=== PATIENT | female | born 1995 | race American Indian/Alaskan Native ===

== ENCOUNTER 2016-11-12 14:15 | Emergency (ER) | payer SELFPAY ==
[2016-11-12 15:21] VITALS: BP 143/83
--- NOTE | 2016-11-12 15:22 | Emergency Department Report ---
Chief Complaint: Vaginal Bleeding Stated Complaint: VAG BLEEDING FOR 2 MNTHS/CONTINOUS Time Seen by Provider: 11/12/16 15:20 - HPI History of Present Illness: vag bleed new bcp sees ob in am but did not want to wait hx pcos denies preg or std concern - Exam Vital Signs: Vital Signs 11/12/16 15:17 Temperature 98.6 F Pulse Rate 63 Respiratory 17 Rate Blood Pressure 143/83 O2 Sat by Pulse 98 Oximetry MSE screening note: Focused history and physical exam performed. Due to findings the following was ordered: ED Disposition for MSE Condition: Stable
[2016-11-12 15:42] LABS: Basophils % (Auto) 0.6 % (0.0-1.8); Eosinophils % (Auto) 2.2 % (0.0-4.3); Hematocrit 31.1 % (30.3-42.9); Hemoglobin 9.7 gm/dl (10.1-14.3); Mean Corpuscular HGB Conc 31 % (30-34); Mean Corpuscular Volume 76 fl (79-97); Platelet Count 399 K/mm3 (140-440); Red Cell Distribution Width 14.6 % (13.2-15.2); White Blood Count 8.3 K/mm3 (4.5-11.0)
[2016-11-12 15:44] LABS: Mean Corpuscular Hemoglobin 24 pg (28-32)
[2016-11-12 16:03] LABS: Anion Gap 17 mmol/L; BUN/Creatinine Ratio 12.22; Blood Urea Nitrogen 11 mg/dL (7-17); Calcium 9.1 mg/dL (8.4-10.2); Carbon Dioxide 23 mmol/L (22-30); Chloride 99.9 mmol/L (98-107); Glucose 104 mg/dL (65-100); Potassium 4.6 mmol/L (3.6-5.0); Sodium 135 mmol/L (137-145)
== END 2016-11-12 20:25 | disposition left against medical advice (07) ==
LOC: ED 14:15
DX: N93.8 Other specified abnormal uterine and vaginal bleeding (principal); Z53.21 Procedure and treatment not carried out due to patient leaving prior to being seen by health care provider
CPT/HCPCS: 36415; 80048; 85025

== ENCOUNTER 2020-03-01 06:03 | Day surgery (SDC) | payer OTHER ==
[2020-02-26 10:53] LABS: Hematocrit 25.6 % (30.3-42.9); Hemoglobin 8.5 gm/dl (10.1-14.3); Mean Corpuscular HGB Conc 33 % (30-34); Platelet Count 385 K/mm3 (140-440); Red Blood Count 3.83 M/mm3 (3.65-5.03)
[2020-02-26 11:13] LABS: Mean Corpuscular Volume 67 fl (79-97); Red Cell Distribution Width 24.4 % (13.2-15.2)
--- NOTE | 2020-02-29 18:00 | History and Physical Report ---
History of Present Illness Date of examination: 02/25/20 Chief complaint: Menorrhagia, endometrial mass, anemia History of present illness: Past History : 2 Term Births: 1 Premature Births: 1 Living Children: 1 Para: 2 Mult. Births: 0 Prev : 0 Aborta: 0 Elect. Ab: 0 Spont. Ab: 0 Ectopics: 0 # 1 Delivery date: 01/24/2012 Weeks Gestation: 20 Delivery type: vaginal Sex: female weight: 6-3 Comments: labor, breech presentation, / , incompetent cervix # 2 Delivery date: 06/07/2014 Weeks Gestation: 40 Delivery type: Vaginal Anesthesia type: none Delivery location: [facility] Infant Sex: female weight: 8.25 Comments: hx PTD; s/p cerclage; meconium PIZZA CHEF History Uterine Surgery (not C/S): negative Operations: cerclage Anesthesia Complications: negative Abnormal PAP: negative Uterine Anomaly: negative HECTOR Exposure: negative Infertility: negative Infection History HIV Risk Eval: no Personal hx. of genital herpes: no Partner hx. of genital herpes: no Hx of STD: gonorrhea Other: Chlamydia Trichomonas Active Medications (reviewed today): FERROUS SULFATE 325 (65 FE) MG ORAL TABLET (FERROUS SULFATE) 1 po qd SPRINTEC 28 0.25-35 MG-MCG ORAL TABLET (NORGESTIMATE-ETH ESTRADIOL) 1 po qd continuous therapy as directed Current Allergies (reviewed today): No known allergies Past Medical History: 20wk cervical incompetence Blood Transfusion x 3 for menorrhagia - last transfusion 12/2019 PCOS dx'd 2013 Anemia Past Surgical History: Reviewed history from 11/13/2016 and no changes required: cerclage Family History Summary: Reviewed history Last on 01/28/2020 and no changes required:02/29/2020 Other Family Member - Has No Family History of Uterine Cancer - Entered On: 11/09/2018 Other Family Member - Has No Family History of Small Bowel Cancer - Entered On: 11/09/2018 Other Family Member - Has No Family History of Stomach Cancer - Entered On: 11/09 Other Family Member - Has No Family History of Pancreatic Cancer - Entered On: 11/09/2018 Other Family Member - Has No Family History of Ovarvian Cancer - Entered On: 11/09/2018 Other Family Member - Has No Family History of Kidney/Urinary Tract Cancer - Entered On: 11/09/2018 Other Family Member - Has No Family History of Spontaneous DVT-PE - Entered On: 11/09/2018 Other Family Member - Has No Family History of Colon Cancer - Entered On: 11/09/2018 Other Family Member - Has No Family History of Brain Cancer - Entered On: 11/09/2018 Other Family Member - Has No Family History of Breast Cancer - Entered On: 11/09/2018 Other Family Member - Has No Family History of Biliary Tract Cancer - Entered On: 11/09/2018 General Comments - FH: negative Social History: Reviewed history from 09/27/2017 and no changes required: no e/t/d single Smoking History: Patient is a former smoker. Risk Factors: Smoked Tobacco Use: Former smoker Years Since Last Quit: 2 Smokeless Tobacco Use: Never Passive smoke exposure: no Drug use: no Alcohol use: no Exercise: yes Seatbelt use: 100 % PAP Smear History: Date of Last PAP Smear: 01/28/2020 Previous Tobacco Use: Signed On 01/28/2020 Smoked Tobacco Use: Former smoker Cigarettes: Yes Year quit: 2018 Years Since Last Quit: 2 years, 7 months, 30 days Smokeless Tobacco Use: Never Passive smoke exposure: no Drug use: no HIV high-risk behavior: no Caffeine use: 0 drinks per day Previous Alcohol Use: Signed On 01/28/2020 Alcohol use: no Exercise: yes Times per week: 3 Type of Exercise: occ Seatbelt use: 100 % Dietary Counseling: pn yes PAP Smear History: Date of Last PAP Smear: 01/28/2020 Physical Exam Appearance: well developed, well nourished, no acute distress Other Exams Lungs: no rales, rhonchi, or wheezes Heart: S1, S2, no murmur, rub, or gallop Genitourinary Exam Uterus: deferred for EUA Impression & Recommendations: Problem # 1: Endometrial mass (ICD-236.0) (RJR25-E49.0) She desires to proceed with hysterscopy with excision of endometrial mass and D&C Consent reviewed and signed . Possible laparoscopy or laparotomy explained to patient. The risks and alternatives for this surgery were reviewed with the patient. She was informed of possible bleeding, infection, injury to bowel, bladder, ureters or other adjacent organs. The patient was instructed/informed the following: The normal length of hospital stay for this procedure. Nothing to eat or drink after midnight the evening prior to surgery. Clear liquids the day before surgery. Pre-op instruction sheets given. Patient to call for any signs or symptoms of infection. The usual discomforts associated with this procedure were detailed. Proper use of pain medicines was reviewed Problem # 2: Menorrhagia (ICD-626.2) (RCK45-E36.0) Diagnosis explained to patient . Questions answered. Discussed with patient various medical and surgical therapies common for treatment: Hormonal/medical therapy,endometrial ablation or hysterectomy. She desires Mirena IUD insertion if pathology is benign. Her updated medication list for this problem includes: Sprintec 28 0.25-35 Mg-mcg Oral Tablet (Norgestimate-eth estradiol) ..... 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) (IXA30-S37.0) Problem # 4: Chronic endometritis (ICD-615.1) (DGI33-H49.1) ] Medications and Allergies Allergies Allergy/AdvReac Type Severity Reaction Status Date / Time No Known Allergies Allergy Verified 02/23/20 10:16 Home Medications Medication Instructions Recorded Confirmed Last Taken Type Norgestimate-Ethinyl Estradiol 1 each PO DAILY 02/23/20 02/23/20 Unknown History [Estarylla 0.25-0.035 mg Tablet] Active Meds: Active Medications Cefazolin Sodium (Ancef/Sterile Water 2 Gm/20 Ml) 2 gm in 20 mls @ 80 mls/hr IV PREOP NR; Protocol Exam Vital Signs Temp Pulse Resp BP Pulse Ox 98.3 F 72 18 129/83 99 02/26/20 10:20 02/26/20 10:20 02/26/20 10:20 02/26/20 10:20 02/26/20 10:20 Results - Labs 02/26/20 10:25 Assessment and Plan - Patient Problems (1) Endometrial mass Status: Acute (2) Chronic anemia Status: Chronic (3) PCOS (polycystic ovarian syndrome) Status: Chronic (4) Excessive and frequent menstruation with irregular cycle Status: Chronic
[~2020-03-01 06:03] MED LIST: ceFAZolin/Water 2 GM/20 ML 2 GM/20 ML SYRINGE IV NR
[2020-03-01] MEDS ORDERED: BACTERIOSTATIC SODIUM CHLORIDE 0.9% 30 ML VIAL INFILTRATI ONE (06:35)
[2020-03-01] MEDS ORDERED: propofoL 200 MG/20 ML VIAL IV ONE (07:08)
[2020-03-01] MEDS ORDERED: fentaNYL 100 MCG/2 ML INJ ONE (07:09)
[2020-03-01] MEDS ORDERED: LIDOCAINE MPF (2%) 20 MG/1 ML VIAL 5 ML ONE (07:09)
[2020-03-01] MEDS ORDERED: HYDROmorphone 1 MG/1 ML INJ IV PRN (07:16)
[2020-03-01] MEDS ORDERED: ONDANSETRON 4 MG/2 ML INJ IV PRN (07:16)
[2020-03-01] MEDS ORDERED: LACTATED RINGERS 1,000 ML ONE (07:17)
--- NOTE | 2020-03-01 07:17 | Anesthesia Day of Surgery ---
Anesthesia Day of Surgery - Day of Surgery Patient Examined: Yes Patient H&P Reviewed: Yes Patient is NPO: Yes
--- NOTE | 2020-03-01 07:18 | Anesthesia Consultation ---
Anesthesia Consult and Med Hx Date of service: 03/01/20 - Airway Anesthetic Teeth Evaluation: Chipped ROM Head & Neck: Adequate Mental/Hyoid Distance: Adequate Mallampati Class: Class II Intubation Access Assessment: Good - Pre-Operative Health Status ASA Pre-Surgery Classification: ASA2 Proposed Anesthetic Plan: General - Pulmonary Hx Smoking: Yes (quit 2012) Hx Asthma: No (+2FS) COPD: No Hx Pneumonia: No - Cardiovascular System Hx Hypertension: No - Central Nervous System Hx Seizures: No Hx Psychiatric Problems: No - Endocrine Hx Renal Disease: No Hx End Stage Renal Disease: No Hx Hypothyroidism: No (PCOS) Hx Hyperthyroidism: No - Hematic Hx Anemia: Yes Hx Sickle Cell Disease: No - Other Systems Hx Alcohol Use: No Hx Cancer: No
[2020-03-01] MEDS ORDERED: SODIUM CHLORIDE 0.9% IRRIG SOLN 3000 ML IR ONE ×2 (07:21)
[2020-03-01] MEDS ORDERED: LACTATED RINGERS 1,000 ML IV SCH (08:00)
[2020-03-01] MEDS ORDERED: MIDAZOLAM 2 MG/2 ML INJ IV NR (08:00)
[2020-03-01] MEDS ORDERED: KETOROLAC 30 MG/1 ML INJ ONE (08:01)
[2020-03-01] MEDS ORDERED: ONDANSETRON 4 MG/2 ML INJ ONE (08:01)
[2020-03-01] MEDS: HYDROmorphone 1 MG/1 ML INJ IV PRN ×2 (08:24→08:45)
--- NOTE | 2020-03-01 08:29 | Discharge Summary ---
Providers - Providers Date of discharge: 03/01/20 Attending physician: MARY MARSH Primary care physician: HELEN MCRAE MD Hospitalization Condition: Good Procedures: Cervical dilation Hysteroscopic with resection of endometrium Uterine curettage Hospital course: Normal Disposition: - TO HOME OR SELFCARE - Discharge Diagnoses (1) Endometrial mass Status: Resolved (2) Chronic anemia Status: Chronic (3) PCOS (polycystic ovarian syndrome) Status: Chronic (4) Excessive and frequent menstruation with irregular cycle Status: Chronic Core Measure Documentation - Palliative Care Palliative Care/ Comfort Measures: Not Applicable - Core Measures Any of the following diagnoses?: none Exam - Constitutional Vitals: Temp Pulse Resp BP Pulse Ox 98.6 F 80 20 127/63 96 03/01/20 06:35 03/01/20 06:35 03/01/20 06:35 03/01/20 06:35 03/01/20 06:35 General appearance: Present: no acute distress - Respiratory Respiratory effort: normal - Cardiovascular Rhythm: regular - Extremities Extremities: no ischemia, No edema - Abdominal Female genitourinary: Present: deferred Plan Activity: other (No sex. No driving for 24 hours. Void and ambulate every 1- 2hours) Weight Bearing Status: Full Weight Bearing Diet: regular (Eat small meals frequently. Drink ~100oz water a day) Special Instructions: no heavy lifting (Greater than 25lbs [id number]) Follow up with: PRIMARY MD THOR [Primary Care Provider] - 7 Days MARY MARSH MD [Staff Physician] - (As scheduled) Forms: Work/School Release Form Prescriptions: Ibuprofen [Motrin 800 MG tab] 800 mg PO TID PRN #30 tablet PRN Reason: Pain oxyCODONE /ACETAMINOPHEN [Percocet 5/325 mg] 1 - 2 tab PO Q6HR PRN #7 tablet PRN Reason: Pain
--- NOTE | 2020-03-01 08:37 | Operative Report ---
Operative Report Operative Report: Date: 03/01/2020 PREOPERATIVE DIAGNOSES: 1. Menorrhagia 2. Endometrial mass 3. Anemia POSTOPERATIVE DIAGNOSES: 1. Menorrhagia 2. Anemia PROCEDURE PERFORMED: 1. Cervical dilation 2. Hysteroscopy. 3. Resection of endometrium 4. Uterine curettage ANESTHESIA: LMA ESTIMATED BLOOD LOSS: Less than minimal INDICATIONS: This is a 24-year-old female that presents above symptoms which required multiple blood transfusions. Exam under anesthesia was unremarkable PROCEDURE: The patient was seen in the preoperative suite. Expected procedure and postoperative course discussed with her. She was taken to the operative suite where she was placed in supine position and LMA was performed. She was placed in a dorsal lithotomy position. A bimanual exam was done, the uterus was found to be 10. She was prepped and draped in the normal sterile fashion. Timeout was performed. Her bladder was drained with the red Corcoran catheter which produced approximately 100 cc of clear yellow urine. The cervix and vagina were grossly normal with no obvious masses or deformities. A bivalve operative speculum was placed in the vagina and the anterior lip of the cervix was grasped with the single-tooth tenaculum. The uterus was sounded to ~9 cm. The cervix was progressively dilated to allow the diagnostic hysteroscope. Under direct visualization, the ostia were within normal limits. The endometrial lining appeared normal, however, there was no obvious evidence of malignancy. The endometrium was resected using the S[employer]ey [employer] device. The hysteroscope was removed and a small sharp curette was placed intrauterine very carefully using anterior wall for guidance. Endometrial curettings were obtained. The endometrial sampling was placed on Telfa pad and sent to Pathology for evaluation, permanent. The hysteroscope was introduced again, no evidence of perforation was noted. At this point procedure was ended. The single-tooth tenaculum and speculum were removed. The cervix was found to be hemostatic. Counts were correct. Patient was taken to the PACU stable. Distention fluid: Normal saline Deficit: 150 mL
--- NOTE | 2020-03-01 09:03 | Post Anesthesia Evaluation ---
- Post Anesthesia Evaluation Patient Participated: Yes Airway Patent: Yes Stable Respiratory Function: Yes Nausea/Vomiting: No Temp > 96.8F: Yes Pain Manageable: Yes Adequeate Hydration: Yes Anesthesia Complications: No Block Receding Appropriately: Not Applicable Patient on Ventilator: No
[2020-03-01 09:28] VITALS: BP 131/67
== END 2020-03-01 06:04 | disposition home or self-care (01) ==
LOC: OR 06:03
PROVIDERS: ATTEND Obstetrics & Gynecology
DX: N92.0 Excessive and frequent menstruation with regular cycle (principal); N85.8 Other specified noninflammatory disorders of uterus; N94.89 Other specified conditions associated with female genital organs and menstrual cycle; D64.9 Anemia, unspecified; Z87.891 Personal history of nicotine dependence; Z98.890 Other specified postprocedural states; Z82.49 Family history of ischemic heart disease and other diseases of the circulatory system; Z87.59 Personal history of other complications of pregnancy, childbirth and the puerperium
CPT/HCPCS: 36415; 81025; 85027; 88305; A4217; J0690; J1170; J1885; J2250; J2405; J2704; J3010; J7120; U0003-CS

== ENCOUNTER 2020-12-19 11:41 | Emergency (ER) | payer OTHER ==
[2020-12-19 15:22] LABS: Basophils % (Auto) 0.4 % (0.0-1.8); Eosinophils # (Auto) 0.3 K/mm3 (0.0-0.4); Eosinophils % (Auto) 3.6 % (0.0-4.3); Hematocrit 31.2 % (30.3-42.9); Lymphocytes # (Auto) 2.5 K/mm3 (1.2-5.4); Lymphocytes % (Auto) 35.7 % (13.4-35.0); Mean Corpuscular HGB Conc 32 % (30-34); Mean Corpuscular Volume 79 fl (79-97); Monocytes # (Auto) 0.6 K/mm3 (0.0-0.8); Monocytes % (Auto) 8.9 % (0.0-7.3); Platelet Count 388 K/mm3 (140-440); Red Blood Count 3.96 M/mm3 (3.65-5.03); Red Cell Distribution Width 17.3 % (13.2-15.2)
--- NOTE | 2020-12-19 17:00 | Emergency Department Report ---
ED Female HPI - General Chief complaint: Vaginal Bleeding Stated complaint: VAGINAL BLEEDING FOR A MONTH, WEAK Time Seen by Provider: 12/19/20 14:53 Source: patient Mode of arrival: Ambulatory Limitations: No Limitations - History of Present Illness Initial comments: Patient is 25 years old female with history of menorrhagia. Patient has been followed by Dr. Jay. Patient stated that she had an IUD placed last year. Patient stated that bleeding started approximately 1 month ago and continued. On and off. Patient denied any abdominal pain or cramping. No dizziness, shortness of breath, nausea or vomiting. MD Complaint: vaginal bleeding - Related Data Home Medications Medication Instructions Recorded Confirmed Last Taken Norgestimate-Ethinyl Estradiol 1 each PO DAILY 02/23/20 03/01/20 02/29/20 09:00 [Estarylla 0.25-0.035 mg Tablet] Previous Rx's Medication Instructions Recorded Last Taken Type Ibuprofen [Motrin 800 MG tab] 800 mg PO TID PRN #30 tablet 03/01/20 Unknown Rx metroNIDAZOLE [Flagyl TAB] 500 mg PO ONCE #4 tablet 03/01/20 Unknown Rx oxyCODONE /ACETAMINOPHEN [Percocet 1 - 2 tab PO Q6HR PRN #7 tablet 03/01/20 Un known Rx 5/325 mg] Allergies Allergy/AdvReac Type Severity Reaction Status Date / Time coconut AdvReac Hives Verified 03/01/20 06:56 mushroom AdvReac Hives Verified 03/01/20 06:56 ED Review of Systems ROS: Stated complaint: VAGINAL BLEEDING FOR A MONTH, WEAK Other details as noted in HPI Comment: All other systems reviewed and negative Constitutional: denies: chills, fever Respiratory: denies: cough, shortness of breath Cardiovascular: denies: chest pain, palpitations Gastrointestinal: denies: abdominal pain, nausea, vomiting Genitourinary: abnormal menses. denies: dysuria Neurological: denies: headache, weakness ED Past Medical Hx - Past Medical History Previous Medical History?: No Hx Hypertension: No Hx Congestive Heart Failure: No Hx Diabetes: No Hx Deep Vein Thrombosis: No Hx Renal Disease: No Hx Sickle Cell Disease: No Hx Seizures: No Hx Asthma: No (+2FS) Hx COPD: No Hx HIV: No Additional medical history: PCOS, anemia - Surgical History Past Surgical History?: Yes Additional Surgical History: D&C - Social History Smoking Status: Never Smoker - Medications Home Medications: Home Medications Medication Instructions Recorded Confirmed Last Taken Type Norgestimate-Ethinyl Estradiol 1 each PO DAILY 02/23/20 03/01/20 02/29/20 09:00 History [Estarylla 0.25-0.035 mg Tablet] Ibuprofen [Motrin 800 MG tab] 800 mg PO TID PRN #30 tablet 03/01/20 Unknown Rx metroNIDAZOLE [Flagyl TAB] 500 mg PO ONCE #4 tablet 03/01/20 Unknown Rx oxyCODONE /ACETAMINOPHEN [Percocet 1 - 2 tab PO Q6HR PRN #7 tablet 03/01/20 Unknown Rx 5/325 mg] ED Physical Exam - General Limitations: No Limitations General appearance: alert, in no apparent distress - Head Head exam: Present: atraumatic, normocephalic, normal inspection - Eye Eye exam: Present: normal appearance - ENT ENT exam: Present: normal exam, normal orophraynx, mucous membranes moist - Neck Neck exam: Present: normal inspection, full ROM. Absent: tenderness, meningismus - Respiratory Respiratory exam: Present: normal lung sounds bilaterally - Cardiovascular Cardiovascular Exam: Present: regular rate, normal rhythm, normal heart sounds - GI/Abdominal GI/Abdominal exam: Present: soft, normal bowel sounds. Absent: distended, tenderness, guarding, rebound, rigid, organomegaly, mass, bruit, pulsatile mass, hernia - Extremities Exam Extremities exam: Present: normal inspection, full ROM, normal capillary refill - Back Exam Back exam: Present: normal inspection, full ROM. Absent: CVA tenderness (R), CVA tenderness (L) - Neurological Exam Neurological exam: Present: alert, oriented X3, CN II-XII intact, normal gait, reflexes normal. Absent: motor sensory deficit - Psychiatric Psychiatric exam: Present: normal mood - Skin Skin exam: Present: warm, intact, normal color ED Course Vital Signs 12/19/20 12:16 Temperature 98.3 F Pulse Rate 74 Respiratory 18 Rate Blood Pressure 154/84 [Right] O2 Sat by Pulse 98 Oximetry ED Medical Decision Making - Lab Data Result diagrams: 12/19/20 15:08 - Medical Decision Making Patient is 25 years old female with history of menorrhagia. Patient has been followed by Dr. Jay. Patient stated that she had an IUD placed last year. Patient stated that bleeding started approximately 1 month ago and continued. On and off. Patient denied any abdominal pain or cramping. No dizziness, shortness of breath, nausea or vomiting. Labs reviewed and is unremarkable. test is negative. Patient given prescription for Provera and advised to follow-up with Dr. Jay in the next 2 to 3 days and to return to the ER if he develop any new symptoms. Critical care attestation.: If time is entered above; I have spent that time in minutes in the direct care of this critically ill patient, excluding procedure time. ED Disposition Clinical Impression: Menorrhagia Disposition: DC-01 TO HOME OR SELFCARE Is pt being admited?: No Condition: Stable Instructions: Abnormal Uterine Bleeding Referrals: MARY JAY MD [Staff Physician] - 3-5 Days
[2020-12-19 18:09] VITALS: BP 128/77
== END 2020-12-19 17:55 | disposition home or self-care (01) ==
LOC: ED 11:41
DX: N92.0 Excessive and frequent menstruation with regular cycle (principal); Z98.890 Other specified postprocedural states; Z91.018 Allergy to other foods; Z79.899 Other long term (current) drug therapy; Z86.2 Personal history of diseases of the blood and blood-forming organs and certain disorders involving the immune mechanism
CPT/HCPCS: 36415; 84702; 85025; 99283

== ENCOUNTER 2020-12-27 23:09 | Emergency (ER) | payer OTHER ==
[2020-12-28 01:21] LABS: Basophils % (Auto) 0.4 % (0.0-1.8); Eosinophils # (Auto) 0.1 K/mm3 (0.0-0.4); Eosinophils % (Auto) 1.2 % (0.0-4.3); Hematocrit 30.4 % (30.3-42.9); Hemoglobin 9.7 gm/dl (10.1-14.3); Lymphocytes % (Auto) 32.1 % (13.4-35.0); Mean Corpuscular HGB Conc 32 % (30-34); Mean Corpuscular Volume 77 fl (79-97); Monocytes # (Auto) 0.7 K/mm3 (0.0-0.8); Monocytes % (Auto) 7.4 % (0.0-7.3); Platelet Count 445 K/mm3 (140-440); Red Blood Count 3.94 M/mm3 (3.65-5.03); Red Cell Distribution Width 16.5 % (13.2-15.2)
[2020-12-28 01:53] LABS: Bilirubin,Urine NEG (Negative); Blood,Urine LG (Negative); Color,Urine Yellow (Yellow); Mucus,Urine FEW /HPF; Urobilinogen,Urine < 2.0 mg/dL (<2.0)
[2020-12-28 01:58] LABS: RBC,Urine > 182.0 /HPF (0.0-6.0)
--- NOTE | 2020-12-28 04:08 | Emergency Department Report ---
ED Female HPI - General Chief complaint: Vaginal Bleeding Stated complaint: VAGINAL BLEEDING/ABDOMINAL PAIN Time Seen by Provider: 12/28/20 03:56 Source: patient Mode of arrival: Ambulatory Limitations: No Limitations - History of Present Illness Initial comments: 25-year-old obese -[place]ian female [facility] emerge department complaining of continued pelvic cramping and bleeding which has increased since the onset of her starting her Provera 1 week ago. Patient reports the medication as prescribed with no improvement has not yet been able to follow-up with [facility] stating that they were not answering the phone to schedule her appointment. She reports no suspicion of she reports no vaginal discharge, no fever, chills, sweats, presyncope, chest pain, headache, blurred vision, nausea, vomiting. MD Complaint: vaginal bleeding Radiation: suprapubic Severity: mild, moderate Quality: cramping Consistency: constant Improves with: none Worsens with: none Are you Now?: No Associated Symptoms: vaginal bleeding. denies: vaginal discharge, nausea/vomiting, loss of appetite, hematuria, shortness of breath, syncope, weakness - Related Data Home Medications Medication Instructions Recorded Confirmed Last Taken Norgestimate-Ethinyl Estradiol 1 each PO DAILY 02/23/20 03/01/20 02/29/20 09:00 [Estarylla 0.25-0.035 mg Tablet] Previous Rx's Medication Instructions Recorded Last Taken Type RX: Ibuprofen [Motrin 800 MG tab] 800 mg PO TID PRN #30 tablet 03/01/20 Unknown Rx RX: metroNIDAZOLE [Flagyl TAB] 500 mg PO ONCE #4 tablet 03/01/20 Unknown Rx RX: oxyCODONE /ACETAMINOPHEN 1 - 2 tab PO Q6HR PRN #7 tablet 03/01/20 Unknown Rx [Percocet 5/325 mg] medroxyPROGESTERone ACETATE 10 mg PO QDAY #7 tablet 12/19/20 Unknown Rx [Provera] medroxyPROGESTERone ACETATE 10 mg PO QDAY #7 tablet 12/28/20 Unknown Rx [Provera] Allergies Allergy/AdvReac Type Severity Reaction Status Date / Time coconut AdvReac Hives Verified 03/01/20 06:56 mushroom AdvReac Hives Verified 03/01/20 06:56 ED Review of Systems ROS: Stated complaint: VAGINAL BLEEDING/ABDOMINAL PAIN Other details as noted in HPI Comment: All other systems reviewed and negative ED Past Medical Hx - Past Medical History Previous Medical History?: Yes Hx Hypertension: No Hx Congestive Heart Failure: No Hx Diabetes: No Hx Deep Vein Thrombosis: No Hx Renal Disease: No Hx Sickle Cell Disease: No Hx Seizures: No Hx Asthma: No (+2FS) Hx COPD: No Hx HIV: No Additional medical history: PCOS, anemia - Surgical History Additional Surgical History: D&C - Social History Smoking Status: Never Smoker - Medications Home Medications: Home Medications Medication Instructions Recorded Confirmed Last Taken Type Norgestimate-Ethinyl Estradiol 1 each PO DAILY 02/23/20 03/01/20 02/29/20 09:00 History [Estarylla 0.25-0.035 mg Tablet] RX: Ibuprofen [Motrin 800 MG tab] 800 mg PO TID PRN #30 tablet 03/01/20 Unknown Rx RX: metroNIDAZOLE [Flagyl TAB] 500 mg PO ONCE #4 tablet 03/01/20 Unknown Rx RX: oxyCODONE /ACETAMINOPHEN 1 - 2 tab PO Q6HR PRN #7 tablet 03/01/20 Unknown Rx [Percocet 5/325 mg] medroxyPROGESTERone ACETATE 10 mg PO QDAY #7 tablet 12/19/20 Unknown Rx [Provera] medroxyPROGESTERone ACETATE 10 mg PO QDAY #7 tablet 12/28/20 Unknown Rx [Provera] ED Physical Exam - General Limitations: No Limitations General appearance: alert, in no apparent distress - Head Head exam: Present: atraumatic, normocephalic - Eye Eye exam: Present: normal appearance, PERRL, EOMI Pupils: Present: normal accommodation - ENT ENT exam: Present: normal exam, normal orophraynx, mucous membranes moist, TM's normal bilaterally - Neck Neck exam: Present: normal inspection, full ROM - Respiratory Respiratory exam: Present: normal lung sounds bilaterally. Absent: respiratory distress - Cardiovascular Cardiovascular Exam: Present: regular rate, normal rhythm. Absent: systolic murmur, diastolic murmur, rubs, gallop - GI/Abdominal GI/Abdominal exam: Present: soft, tenderness (Tenderness to suprapubic red region and adnexal region bilaterally. Also some tenderness to the right lower quadrant. Abdomen is soft), normal bowel sounds. Absent: guarding, rebound, rigid, hypoactive bowel sounds, organomegaly, mass - Extremities Exam Extremities exam: Present: normal inspection - Back Exam Back exam: Present: normal inspection - Neurological Exam Neurological exam: Present: alert, oriented X3 - Psychiatric Psychiatric exam: Present: normal affect, normal mood - Skin Skin exam: Present: warm, dry, intact, normal color. Absent: rash ED Course Vital Signs 12/28/20 00:29 Temperature 97.5 F L Pulse Rate 66 Respiratory 18 Rate Blood Pressure 129/76 O2 Sat by Pulse 99 Oximetry ED Medical Decision Making - Lab Data Result diagrams: 12/28/20 00:59 - Radiology Data Radiology results: report reviewed [facility] [address] [place] [address] Ultrasound Report Signed Patient: EULALIO STAHL MR# : [id number] : 1995 Acct:[id number] Age/Sex: 25 / F ADM Date: 12/27/20 Loc: ED Attending Dr: Ordering Physician: KRISTOPHER OCAMPO Date of Service: 12/28/20 Procedure(s): US pelvic complete Accession Number(s): [id number] cc: KRISTOPHER OCAMPO Pelvic ultrasound with Doppler INDICATION: Heavy vaginal bleeding and cramping. History of IUD FINDINGS: Uterus measures 8 x 4 x 4 cm. The endometrial thickness was 5 mm. No definite intrauterine device was identified. Both ovaries appear unremarkable. IMPRESSION: No definite intrauterine device identified. Radiographic correlation is suggested. Signer Name: Myles Sam MD Signed: 12/28/2020 6:27 AM Workstation Name: [id number] Transcribed By: Dictated By: Myles Sam MD Electronically Authenticated By: Myles Sam MD Signed Date/Time: 12/28/20626 DD/ 5 TD/TT: Print Cancel - Medical Decision Making 25-year-old female presents emergency department with over 14 days of progressively worsening vaginal bleeding now consuming 1 pad per 1 to 2 hours most likely of a nonemergent etiology. Based on the history, examination, the ED work-up patient's presentation not consistent with an ectopic , molar , life threatening coagulopathy, serious bacterial infection, central process or other emergency. Patient's bleeding is most likely secondary to, fibroids, or the nonemergent cause of abnormal uterine bleeding. Patient does have a Mirena in place and currently taking Provera which she may need to continue for another week of therapy and follow-up with [facility] for definitive treatment options. Hemoglobin is and a safe range at current recommend this be reevaluated in 3 days if bleeding is continue patient return to the emergency department sooner should she feel her condition is worsening but is strongly urged to follow-up with [facility] Disposition: We will discharge home with return precautions and instructions for prompt [facility] follow-up Critical care attestation.: If time is entered above; I have spent that time in minutes in the direct care of this critically ill patient, excluding procedure time. ED Disposition Clinical Impression: Menorrhagia Disposition: TO HOME OR SELFCARE Is pt being admited?: No Does the pt Need Aspirin: No Condition: Stable Instructions: Abnormal Uterine Bleeding, Dysfunctional Uterine Bleeding Additional Instructions: Please stop 5 mg Provera that you are utilizing we will increase the dose to 10 mg but be sure to follow-up with [facility] within 1 week for further evaluation and treatment options Prescriptions: medroxyPROGESTERone ACETATE [Provera] 10 mg PO QDAY #7 tablet Referrals: PRIMARY CARE, [Primary Care Provider] - 3-5 Days [facility] [Provider Group] - 3-5 Days [facility] [Provider Group] - 3-5 Days
--- NOTE | 2020-12-28 06:32 | Ultrasound Report ---
Pelvic ultrasound with Doppler INDICATION: Heavy vaginal bleeding and cramping. History of IUD FINDINGS: Uterus measures 8 x 4 x 4 cm. The endometrial thickness was 5 mm. No definite intrauterine device was identified. Both ovaries appear unremarkable. IMPRESSION: No definite intrauterine device identified. Radiographic correlation is suggested. Signer Name: Myles Sam MD Signed: 12/28/2020 6:27 AM Workstation Name: [id number]
[2020-12-28 07:01] VITALS: BP 127/80
== END 2020-12-28 07:00 | disposition home or self-care (01) ==
LOC: ED 23:09
DX: N92.0 Excessive and frequent menstruation with regular cycle (principal); Z98.890 Other specified postprocedural states; Z91.018 Allergy to other foods; Z79.899 Other long term (current) drug therapy
CPT/HCPCS: 36415; 76856; 81001; 84703; 85025; 99284